=== PATIENT | male | born 1955 | race Two or more races ===

== ENCOUNTER 2021-10-11 07:33 | Outpatient (REF) | payer OTHER, SELFPAY ==
--- NOTE | ~2021-10-11 | XR_ITS ---
EXAMINATION: KNEE X-RAY CLINICAL INFORMATION: Pain COMPARISON: None TECHNIQUE: Standing AP view of both knees and lateral and sunrise view of the left knee FINDINGS: Left: There may be lateral position of the patella on the AP standing view. Bone alignment is otherwise normal. No acute fracture or dislocation is seen. There is mild joint space narrowing at the femoral tibial joints. There is joint space narrowing and osteophyte formation at the patellofemoral joint. There is a well-corticated soft tissue ossification adjacent to the medial patella appreciated on the sunrise view questionable for old trauma. There is no joint effusion. Standing AP view of the right knee is unremarkable. XR/XR knee standing BI IMPRESSION: Arthritis greatest at the patellofemoral joint. Well-corticated ossification adjacent to the medial patella question related to old trauma and lateral position of the patella on the AP standing view.
--- NOTE | ~2021-10-11 | XR_ITS ---
EXAMINATION: KNEE X-RAY CLINICAL INFORMATION: Pain COMPARISON: None TECHNIQUE: Standing AP view of both knees and lateral and sunrise view of the left knee FINDINGS: Left: There may be lateral position of the patella on the AP standing view. Bone alignment is otherwise normal. No acute fracture or dislocation is seen. There is mild joint space narrowing at the femoral tibial joints. There is joint space narrowing and osteophyte formation at the patellofemoral joint. There is a well-corticated soft tissue ossification adjacent to the medial patella appreciated on the sunrise view questionable for old trauma. There is no joint effusion. Standing AP view of the right knee is unremarkable. XR/XR knee LT 2V IMPRESSION: Arthritis greatest at the patellofemoral joint. Well-corticated ossification adjacent to the medial patella question related to old trauma and lateral position of the patella on the AP standing view.
== END 2021-10-11 07:34 | disposition home or self-care (01) ==
LOC: HO.HOSX 07:33
PROVIDERS: Visit Provider Physician Assistant
DX: M25.562 Pain in left knee (principal); M25.561 Pain in right knee; M25.362 Other instability, left knee
CPT/HCPCS: 73560; 73565; 99202

== ENCOUNTER 2021-11-06 16:10 | Outpatient (REF) | payer OTHER, SELFPAY ==
--- NOTE | ~2021-11-06 | MR_ITS ---
EXAMINATION: MR KNEE WITHOUT CONTRAST, LEFT CLINICAL INFORMATION: Medial and lateral left knee pain. Instability. Remote knee surgery. COMPARISON: Left knee radiographs dated 10/11/2021. TECHNIQUE: MRI of the knee without contrast was performed using routine sequences on a high-field scanner. FINDINGS: MENISCI: Medial Meniscus: Intact Lateral Meniscus: Attenuation and irregularity of the anterior horn and root consistent with complex tearing. LIGAMENTS: Cruciate: Intact. Collateral: Intact. EXTENSOR MECHANISM: Elevated TT-TG distance measuring up to 2.3 cm. No patella elijah. Intact quadriceps and patellar tendons. 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 ARTICULAR CARTILAGE/BONE: Patellofemoral Compartment: Patellar median ridge and medial patellar facet articular cartilage thinning. Tiny marginal osteophytes. Medial Compartment: Intact articular cartilage. Lateral Compartment: Mild articular cartilage signal heterogeneity and surface irregularity with tiny marginal osteophytes. JOINT FLUID AND BURSAE: Small joint effusion. MR/MR knee LT wo con IMPRESSION: 1. Attenuation and complex tearing of the lateral meniscus anterior horn and root. 2. Elevated TT-TG distance with edema in the superolateral aspect of Hoffa's fat pad, which can be seen in the setting of patellar tendon-lateral femoral condyle friction syndrome. 3. Mild medial and patellofemoral compartment osteoarthritis. Small joint effusion.
== END 2021-11-06 16:11 | disposition home or self-care (01) ==
LOC: HO.MRI 16:10
PROVIDERS: Visit Provider Physician Assistant
DX: M25.362 Other instability, left knee (principal)
CPT/HCPCS: 73721

== ENCOUNTER → 2021-12-06 12:15 | Outpatient (BNVA) | payer OTHER, SELFPAY | PROVIDERS: Visit Provider Orthopaedic Surgery | DX: M25.362 Other instability, left knee (principal); E11.9 Type 2 diabetes mellitus without complications | CPT/HCPCS: 99212 ==

== ENCOUNTER 2021-12-24 13:02 | Outpatient (REF) | payer OTHER, SELFPAY ==
[2021-12-24 14:30] LABS: Estimated Average Glucose 131 mg/dL; Hemoglobin A1c % 6.2 %
== END 2021-12-24 13:03 | disposition home or self-care (01) ==
LOC: HO.10HDL 13:02
PROVIDERS: Visit Provider Orthopaedic Surgery
DX: Z01.812 Encounter for preprocedural laboratory examination (principal)
CPT/HCPCS: 36415; 83036

== ENCOUNTER → 2022-03-10 12:13 | Outpatient (BNVA) | payer OTHER, SELFPAY | PROVIDERS: Visit Provider Orthopaedic Surgery | DX: M25.362 Other instability, left knee (principal) | CPT/HCPCS: 99212 ==

== ENCOUNTER → 2022-03-21 11:06 | Outpatient (BNVA) | payer OTHER, SELFPAY | PROVIDERS: PCP Nurse Practitioner Family; Visit Provider Nurse Practitioner Family | DX: J44.9 Chronic obstructive pulmonary disease, unspecified (principal); G47.33 Obstructive sleep apnea (adult) (pediatric); I10 Essential (primary) hypertension; E11.9 Type 2 diabetes mellitus without complications; E66.9 Obesity, unspecified; Z68.34 Body mass index [BMI] 34.0-34.9, adult | CPT/HCPCS: 99202 ==

== ENCOUNTER → 2022-05-18 22:38 | Outpatient (REF) | payer OTHER, SELFPAY | LOC: HO.SL 22:38 | PROVIDERS: Visit Provider Nurse Practitioner Family | DX: G47.33 Obstructive sleep apnea (adult) (pediatric) (principal); I10 Essential (primary) hypertension; E11.9 Type 2 diabetes mellitus without complications; J44.9 Chronic obstructive pulmonary disease, unspecified | CPT/HCPCS: 95810 ==

== ENCOUNTER 2022-05-22 11:00 | Outpatient (RCR) | payer OTHER, SELFPAY ==
--- NOTE | 2022-04-25 13:29 | MHC.PT.EP ---
[facility] [place] Office [place] Office [place] Office [address] [phone] F: [phone] F: [phone] F: [phone] F: [phone] Physical Therapy Plan of Care Date of Evaluation: Date of Surgery: many years ago (unsure exactly how long) Diagnosis: other instability of the knee (RC) Assessment: pt is a 67 y/o male presenting to physical therapy w/ referring diagnosis of R29.898 other symptoms and signs involving the musculoskeletal system, M25.362- other instability, lift knee. 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 Impairments include pain, decreased range of motion, decreased strength, impaired functional mobility, impaired postural awareness, and altered ambulation mechanics. pt is a fair candidate for skilled PT due to age, potential remediation of impairments, typical disease/condition progression and prognosis, comorbidities, and motivation. pt would benefit from skilled PT intervention to provide a tailored strengthening and stretching exercise program, functional training, gait training, postural re-training, neuromuscular re-education, modalities as needed for pain, equipment safety demonstration. Frequency and Duration: The patient will be seen 2x/wk for 4 wks Short Term Goals: pt will be setup w/ HEP to promote self-management of condition. pt will improve L hip flexion and knee extension by 1 MMT grade to promote ease in stair navigation. Custodial Goals: pt will report a statistically significant improvement in self-reported outcome measure, LEFI, to promote return to PLOF. pt will demo sit to stand transfer w/o UE assist to promote ease in transfers. Treatment Plan: Modalities to reduce pain, spasms and effusion. Manual therapy to restore motion and function. Therapeutic exercise to improve strength and flexibility. Neuromuscular re-education for posture and balance. Therapeutic activities to return to functional activities of daily living. Electronically signed by: Rebecca Lundberg PT, DPT Please sign and return to therapist. Thank you for your referral.
--- NOTE | 2022-05-27 12:27 | MHC.PT.DC ---
[facility] [place] [facility] [place] Office [place] Office [address] 140 [facility] [phone] F: [phone] F: [phone] F: [phone] F: [phone] Physical Therapy Discharge Report Diagnosis: other instability of the knee (RC) Date of Surgery: many years ago (unsure exactly how long) Date of Evaluation: 04/25/22 Date of Discharge: 05/27/22 Treatments to Date: 5 Cancellations to Date: 3 No Shows to Date: 1 Discharge Status: Improved Function Independent with HEP Discharge Summary: The patient overall was reporting an improvement in his back and hip pain. The new orthopedic sneaker he was prescribed helped significantly improve his lumbosacral and hip alignment with weight bearing activities. He was given a home exercise program including general lower extremity strengthening and functional mobility. He no showed his last appointment today and is being discharged. He should continue at home with his home exercise program at this time. Electronically signed by: Rebecca Lundberg PT, DPT Please sign and return to therapist. Thank you for your referral.
== END 2022-05-27 12:28 | disposition home or self-care (01) ==
LOC: HO.PT 11:00
PROVIDERS: Visit Provider Orthopaedic Surgery
DX: R29.898 Other symptoms and signs involving the musculoskeletal system (principal); M25.362 Other instability, left knee
CPT/HCPCS: 97110; 97162

== ENCOUNTER 2022-10-24 14:04 | Outpatient (AMB) | payer OTHER, SELFPAY ==
[2022-10-24 14:06] VITALS: BP 148/84; PULSE 78; O2SAT 96; BMI 34.0
--- NOTE | 2022-10-24 14:06 | A.OFFVIS_ITS ---
Intake Vital Signs 10/24/22 14:06 Height 5 ft 5 in Weight 204 lb 2 oz BMI 34.0 BP 148/84 H Blood Pressure Location Lt brachial Position Sitting Pulse 78 Pulse Source Pulse Oximeter Pulse Oximetry (%) 96 Oxygen Delivery Method Room Air Intake Visit Reasons: 3 mo f/u for BOAZ - Conf Intake Note: Pt presents as a 3 month f/u for BOAZ Assistant Mechanic Required: Yes Assistant Mechanic Name: Leeroy [id number] Allergies No Known Allergies Allergy (Verified 10/24/22 14:10) HPI HPI Comments History of Present Illness Details 67 y/o male patient presents for new in- person visit for follow up of BOAZ and sleep study. 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 The PSG sleep study result was severely fragmented sleep, moderate sleep apnea and periodic limb movement. The AHI was 22 and oxygen mayela was 85%. REM sleep was not recorded which may underestimated the severity. Less than 2 hrs of sleep recorded due to long wake periods during the sleep. Pt started APAP [id number]. The CPAP compliance and therapy response (07/15/22-10/12/22) reviewed. The usage days 100% and the average usage hours 12 hrs. The max pressure was 16.8 and the AHI was 0.8/hr. Pt reports he sleeps much better, rested and wakes up refreshed. Legs movement and daytime sleepiness has improved. [facility] Medical History Constipation COPD (chronic obstructive pulmonary disease) Diabetes High blood pressure High cholesterol Family History Mother Diabetes Brother Diabetes Sister Diabetes Social History Alcohol intake: current Alcohol intake frequency: holidays/special occasions only Patient Tobacco Use Status: Never used Tobacco Current occupational status: disabled Review of Systems Const All systems reviewed & are unremarkable except as noted in HPI and below Physical Exam Vital Signs: Last Vital Signs Pulse 78 10/24/22 14:06 BP 148/84 H 10/24/22 14:06 Pulse Ox 96 10/24/22 14:06 Oxygen Delivery Method Room Air 10/24/22 14:06 BMI result Body Mass Index 34.0 Const General: cooperative Nutritional Appearance: obese Orientation/consciousness: patient oriented x3 Limitations: language barrier HEENT Throat: Yes other (mallampati grade 4) Neck Neck: Yes full ROM and Yes supple Resp Effort & Inspection: normal respiratory effort and able to speak in complete sentences Neuro General: patient oriented x3 and moves all extremities Cranial nerves: Yes Bilaterally intact EOM present and Yes Midline tongue present Psych Appearance: grossly normal Mental Status: mental status grossly normal Affect: normal affect Attitude: cooperative Assessment & Plan Assessment & Plan (1) BOAZ (obstructive sleep apnea): Code(s): G47.33 - Obstructive sleep apnea (adult) (pediatric) Plan Continue to use APAP [id number] as patient experiences good clinical effects, less snoring, sleep quality and daytime sleepiness has improved. Stressed compliance, use CPAP nightly and more than 4hrs. Clean mask and tubing regularly. Wt reduction advised. Coding Level of Care Code Est Pt Level 3 (95888) Diagnoses BOAZ (obstructive sleep apnea) G47.33
== END 2022-10-24 14:35 | disposition home or self-care (01) ==
PROVIDERS: Visit Provider Nurse Practitioner Family
DX: G47.33 Obstructive sleep apnea (adult) (pediatric) (principal)
CPT/HCPCS: 99213

== ENCOUNTER → 2022-10-24 14:04 | Outpatient (BNVA) | payer OTHER, SELFPAY | PROVIDERS: Visit Provider Nurse Practitioner Family | DX: G47.33 Obstructive sleep apnea (adult) (pediatric) (principal) | CPT/HCPCS: 99212 ==

== ENCOUNTER 2023-12-03 15:15 | Outpatient (AMB) | payer OTHER, SELFPAY ==
[2023-12-03 15:16] VITALS: BP 134/82; PULSE 64; O2SAT 100; BMI 33.6
--- NOTE | 2023-12-03 15:16 | A.OFFVIS_ITS ---
Vital Signs 12/03/23 15:16 Height 5 ft 5 in Weight 202 lb BMI 33.6 BP 134/82 Blood Pressure Location Rt brachial Position Sitting Pulse 64 Pulse Source Pulse Oximeter Pulse Oximetry (%) 100 Oxygen Delivery Method Room Air Intake Visit Reasons: 1y follow up BOAZ Intake Note: Patient presents for 1 year follow up BOAZ. Allergies No Known Allergies Allergy (Verified 12/03/23 15:19) Medication List - Last Reconciled 12/03/23 by VIOLETA Welch albuterol sulfate 90 mcg/actuation (Ventolin HFA) 0 mcg inhalation Q4H PRN atorvastatin 80 mg PO DAILY blood sugar diagnostic (FreeStyle Lite Strips) As directed ketoconazole 2% topical [Left shoe lift As directed] lisinopril 5 mg PO DAILY metformin 500 mg PO DAILY HPI Comments Details: 68-yr-old male presents for follow-up visit of sleep apnea. Pt denies any significant interval medical history changes. Pt reports he is sleeping well with his APAP. He puts the mask on when gets unto bed to watch TV, and then eventually falls asleep. So he is using APAP ~ 12 hrs/night, and is sleeping ~7-8 hrs per night. He states the APAP sometimes the pressure is a bit stronger. He is using a full face mask- pt states it fits well when he first receives a new mask, but then after 1-2 months, the mask and the straps start becoming stretched out. The mask is causing irritation on the bridge of his nose- pt does show me a picture showing increased erythema. [address], [facility] Email: [email or web address] Compliance Report Usage 11/03/2023 - 12/02/2023 Usage days 30/30 days (100%) >= 4 hours 30 days (100%) < 4 hours 0 days (0%) Average usage (total days) 12 hours 10 minutes AirSense 10 AutoSet Serial number [id number] Mode AutoSet Min Pressure 5 cmH2O Max Pressure 20 cmH2O EPR Fulltime EPR level 2 Response Standard Therapy Pressure - cmH2O Median: 10.3 95th percentile: 17.2 Maximum: 18.9 Leaks - L/min Median: 0.0 95th percentile: 0.0 Maximum: 2.8 Events per hour AI: 0.9 HI: 0.6 AHI: 1.5 Apnea Index Central: 0.0 Obstructive: 0.9 Unknown: 0.0 RERA Index 0.6 PFSH Medical History COPD (chronic obstructive pulmonary disease) Constipation High cholesterol Diabetes High blood pressure Family History Mother Diabetes Brother Diabetes Sister Diabetes Social History Alcohol intake: current Alcohol intake frequency: holidays/special occasions only Patient Tobacco Use Status: Never used Tobacco Current occupational status: disabled Physical Exam Vital Signs: Last Vital Signs Pulse 64 12/03/23 15:16 BP 134/82 12/03/23 15:16 Pulse Ox 100 12/03/23 15:16 Oxygen Delivery Method Room Air 12/03/23 15:16 BMI result Body Mass Index 33.6 Const General: no acute distress Orientation/consciousness: patient oriented x3 HEENT Other: Mild nasal bridge redness/depression where glasses rest on nose. Resp Effort & Inspection: normal respiratory effort and able to speak in complete sentences Neuro General: patient oriented x3 Gait exam (Neuro): Antalgic gait present Psych Mental Status: mental status grossly normal Speech and movement: Clear speech present Attitude: cooperative Assessment & Plan Assessment & Plan (1) BOAZ (obstructive sleep apnea): Code(s): G47.33 - Obstructive sleep apnea (adult) (pediatric) Category: Medical (2) Skin irritation: Code(s): R23.8 - Other skin changes Category: Medical Plan Continue APAP 5-20 cmH2O cmH2O, however adjusted EPR from 2 to 3 via Resmed Airview- in hopes this reduces the episodes of discomfort from the pressure. Continue to use APAP nightly > 4 hours, as pt continues to have good clinical effect from use. Advised that pt can wait until he is going to go to sleep before putting on his APAP, however he is ok continuing his current routine. Will request new mask fitting- pt may benefit from trying a F30/F30i mask. Clean CPAP machine and supplies routinely. Change CPAP supplies routinely. Pt to contact us or respiratory company with any questions or concerns. Pt to follow-up in 12 months or sooner prn. Coding Level of Care Code Est Pt Level 3 (87447) Diagnoses BOAZ (obstructive sleep apnea) G47.33 Skin irritation R23.8
== END 2023-12-03 15:48 | disposition home or self-care (01) ==
PROVIDERS: Absent Provider Nurse Practitioner Family; Visit Provider Nurse Practitioner Family
DX: G47.33 Obstructive sleep apnea (adult) (pediatric) (principal); R23.8 Other skin changes
CPT/HCPCS: 99213

== ENCOUNTER → 2023-12-03 15:15 | Outpatient (BNVA) | payer OTHER, SELFPAY | PROVIDERS: Absent Provider Nurse Practitioner Family; Visit Provider Nurse Practitioner Family | DX: G47.33 Obstructive sleep apnea (adult) (pediatric) (principal); R23.8 Other skin changes; Z99.89 Dependence on other enabling machines and devices | CPT/HCPCS: 99212 ==